=== PATIENT | male | born 1985 | race Asian ===

== ENCOUNTER 2016-08-04 04:49 | Emergency (ER) | payer OTHER ==
[~2016-08-04] VITALS: Ht 167.6 cm; Wt 68.2 kg
[2016-08-04] MEDS ORDERED: IBUPROFEN 600 MG TABLET PO ONE (06:30)
[2016-08-04] MEDS ORDERED: DEXAMETHASONE SOD PHOS 4 MG/ML 5 ML VIAL IM ONE (06:30)
[2016-08-04 07:53] VITALS: BP 148/90
== END 2016-08-04 08:25 | disposition home or self-care (01) ==
LOC: EMS 04:52
DX: J02.8 Acute pharyngitis due to other specified organisms (principal); B97.89 Other viral agents as the cause of diseases classified elsewhere
CPT/HCPCS: 87430; 96372; 99283; J1100